=== PATIENT | male | born 2000 | race Caucasian/White ===

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

== ENCOUNTER 2023-12-28 20:33 | Emergency (ER) | payer OTHER ==
[~2023-12-28] VITALS: Ht 182.9 cm; Wt 68.0 kg
[~2023-12-28 20:33] MED LIST changes: +NAPROSYN500 MG PO; +TYLENOL325 M1 PO
[2023-12-28] MEDS ORDERED: Lidocaine Hydrochloride 2% 10 ML AMP SC ONE (21:50)
[2023-12-28] MEDS ORDERED: Bacitracin Zinc 14 GM TUBE T ONE (21:50)
[2023-12-28] MEDS ORDERED: Tdap Vaccine 0.5 ML SYR (Adult Vaccine) IM ONE (21:50)
== END 2023-12-29 00:20 | disposition home or self-care (01) ==
LOC: ED 20:33
DX: S01.81XA Laceration without foreign body of other part of head, initial encounter (principal); M54.2 Cervicalgia; V43.62XA Car passenger injured in collision with other type car in traffic accident, initial encounter; Y93.89 Activity, other specified; Y92.410 Unspecified street and highway as the place of occurrence of the external cause; Y99.8 Other external cause status

== ENCOUNTER 2024-09-01 11:07 | Emergency (ER) | payer SELFPAY ==
[2024-09-01] MEDS ORDERED: NAPROSYN500 MG PO (14:47)
== END 2024-09-01 12:52 | disposition home or self-care (01) ==
LOC: ED 11:07
DX: S93.402A Sprain of unspecified ligament of left ankle, initial encounter (principal); Z79.899 Other long term (current) drug therapy; X50.1XXA Overexertion from prolonged static or awkward postures, initial encounter; Y93.89 Activity, other specified; Y92.89 Other specified places as the place of occurrence of the external cause; Y99.8 Other external cause status